=== PATIENT | female | born 1940 | race Caucasian/White ===

== ENCOUNTER 2018-12-18 11:01 | Outpatient (RCR) | payer MEDICARE ==
[~2018-12-18 11:01] MED LIST: ATORVASTATIN CA20 MG PO; FEXOFENADINE H180 MG PO; FLUTICASONE; FOLIC ACID0.4 MG PO; JANUVIA100 MG PO; LISINOPRIL-HCT1 EACH PO; OMEGA-31000 MG PO; PREDNISONE10 MG PO; PROTONIX40 MG/ML PO; REMICADE100 MG IV; SUCRALFATE1 GM PO; VITAMIN B-COMP1 EAC1 PO; VITAMIN B12-FO1 EACH PO; VITAMIN D32000 UNI1 PO; Z ETODOLAC PO; Z.0.INDAPAMIDE1.25 M PO; Z.0.METOPROLOL TART5 PO; Z.0.PREDNISONE5 MG PO; Z.0.SIMVASTATIN20 MG PO; Z.1.LEVOTHYROXINE100 PO; Z.1.METHOTREXATE2.5 PO; [UNRECOGNIZED DRUG - OTHER]; [UNRECOGNIZED DRUG - OTHER] PO
== END 2018-12-28 ==
LOC: PT 11:01
PROVIDERS: ATTEND Neurological Surgery
DX: M48.062 Spinal stenosis, lumbar region with neurogenic claudication (principal); M62.81 Muscle weakness (generalized); R26.9 Unspecified abnormalities of gait and mobility

== ENCOUNTER 2019-01-27 08:51 | Outpatient (RCR) | payer MEDICARE | END 2019-01-28 | LOC: PT 08:51 | PROVIDERS: ATTEND Neurological Surgery | DX: M48.062 Spinal stenosis, lumbar region with neurogenic claudication (principal); M62.81 Muscle weakness (generalized); R26.9 Unspecified abnormalities of gait and mobility | CPT/HCPCS: 97139 ==

== ENCOUNTER 2019-02-10 08:52 | Outpatient (RCR) | payer MEDICARE | END 2019-02-28 | LOC: PT 08:52 | PROVIDERS: ATTEND Neurological Surgery | DX: M48.062 Spinal stenosis, lumbar region with neurogenic claudication (principal); M62.81 Muscle weakness (generalized); R26.9 Unspecified abnormalities of gait and mobility | CPT/HCPCS: 97139 ==